=== PATIENT | female | born 1995 | race Caucasian/White ===

== ENCOUNTER 2019-10-29 10:12 | Observation (INO) | payer SELFPAY ==
[~2019-10-29] VITALS: Ht 157.4 cm; Wt 61.0 kg
[~2019-10-29 10:12] MED LIST: BACTRIM; IBP800T PO; PRM25T PO
[2019-10-29] MEDS ORDERED: LACTATED RINGERS 1,000 ML IV ONE ×2 (11:02→12:34)
[2019-10-29] MEDS ORDERED: ONDANSETRON 4 MG/2 ML (SDV) Z0FRAN IVP ONE (11:15)
[2019-10-29] MEDS ORDERED: KETOROLAC 30 MG/ML VIAL IVP ONE (11:15)
[2019-10-29 11:18] LABS: BILIRUBIN,URINE NEGATIVE (NEGATIVE); CLARITY,URINE CLOUDY; COLOR,URINE YELLOW; GLUCOSE, URINE (UA) NEGATIVE (NEGATIVE); KETONES,URINE 1+ (NEGATIVE); LEUKOCYTE ESTERASE ,URINE 2+ (NEGATIVE); NITRITE,URINE POSITIVE (NEGATIVE); PROTEIN,URINE TRACE (NEGATIVE)
[2019-10-29 11:35] LABS: BACTERIA,URINE LARGE /HPF; WBC,URINE 25-50 /HPF
[2019-10-29 12:00] LABS: BASOPHILS % (AUTO) 0 % (0-10); EOSINOPHILS % (AUTO) 0 % (0-10); HEMATOCRIT 41 % (35-52); HEMOGLOBIN 13.8 G/DL (11.5-16.0); LYMPHOCYTES # (AUTO) 0.5 X 10^3 (1.0-4.0); LYMPHOCYTES % (AUTO) 5 % (12-44); MEAN CORPUSCULAR HEMOGLOBIN 32 PG (25-34); MEAN CORPUSCULAR HGB CONC 34 G/DL (32-36); MEAN CORPUSCULAR VOLUME 94 FL (80-99); MEAN PLATELET VOLUME 10.4 FL (7.4-10.4); MONOCYTES # (AUTO) 1.3 X 10^3 (0.0-1.0); MONOCYTES % (AUTO) 12 % (0-12); NEUTROPHILS # (AUTO) 9.1 X 10^3 (1.8-7.8); NEUTROPHILS % (AUTO) 83 % (42-75); PLATELET COUNT 212 10^3/uL (130-400); WHITE BLOOD COUNT 10.9 10^3/uL (4.3-11.0)
[2019-10-29 12:22] LABS: ALANINE AMINOTRANSFERASE 206 U/L (0-55); ALBUMIN 4.3 GM/DL (3.2-4.5); ALKALINE PHOSPHATASE 192 U/L (40-136); BUN/CREATININE RATIO 8; CALCIUM 9.7 MG/DL (8.5-10.1); CARBON DIOXIDE 23 MMOL/L (21-32); CHLORIDE 100 MMOL/L (98-107); CREATININE SERUM 0.76 MG/DL (0.60-1.30); GFR ESTIMATED > 60; GLUCOSE 90 MG/DL (70-105); MAGNESIUM 1.9 MG/DL (1.6-2.4); POTASSIUM 3.8 MMOL/L (3.6-5.0); SODIUM 135 MMOL/L (135-145); TOTAL PROTEIN 7.9 GM/DL (6.4-8.2)
[2019-10-29 12:44] LABS: BAND NEUTROPHILS 0 %; BASOPHILS % (MANUAL) 0 %; EOSINOPHILS % (MANUAL) 0 %; LYMPHOCYTES % (MANUAL) 8 %; MONOCYTES % (MANUAL) 10 %; NEUTROPHILS % (MANUAL) 82 %; RBC MORPH NORMAL
--- NOTE | 2019-10-29 12:44 | ED General ---
General Chief Complaint: Cough/Cold/Flu Symptoms Stated Complaint: BODY ACHES / VOMITING / FEVER Nursing Triage Note: pt presents to ed with complaints of body aches, night chills, low grade fevers, and one episode of vomiting this am. Nursing Sepsis Screen: Possible Sepsis Risk Source of Information: Patient Exam Limitations: No Limitations History of Present Illness Date Seen by Provider: Oct 29, 2019 Time Seen by Provider: 10:14 Initial Comments This 23-year-old young lady presents to the emergency room with illness since October 26. It started with back cramping and aching that then radiated down into her legs. She then developed headache and vomiting today. Pain is worse in the left lower back. She took a dose of Tylenol cold and flu which did not improve her symptoms. She has had subjective fevers. She denies any urinary or vaginal complaints. She denies . She reports no significant health problems. She is afebrile at present but is tachycardic with a heart rate in the 120s at rest. Allergies and Home Medications Allergies Coded Allergies: acetaminophen (Verified Adverse Reaction, Intermediate, VOMITING, 10/21/12) propoxyphene napsylate (Verified Adverse Reaction, Intermediate, VOMITING, 10/21/12) Home Medications Ibuprofen 800 Mg Tab, 800 MG PO Q8HR PRN Prescribed by: RAULITO ANN on 10/21/122015 Promethazine Hcl 25 Mg Tablet, 1 TAB PO TID PRN Prescribed by: RAULITO ANN on 10/21/122013 Patient Home Medication List Home Medication List Reviewed: Yes Review of Systems Review of Systems Constitutional: see HPI EENTM: no symptoms reported Respiratory: no symptoms reported Cardiovascular: see HPI Gastrointestinal: see HPI Genitourinary: no symptoms reported : No Musculoskeletal: see HPI Skin: no symptoms reported Psychiatric/Neurological: No Symptoms Reported Hematologic/Lymphatic: No Symptoms Reported Past Tvkqnos-[id number]-Nltccq Hx Past Med/Social Hx: Reviewed and Corrections made Patient Social History Alcohol Use: Occasionally Uses Recreational Drug Use: No Smoking Status: Never a Smoker Recent Foreign Travel: No Contact w/Someone Who Travel: No Recent Infectious Disease Expo: No Physical Abuse: No Sexual Abuse: No Mistreated: No Fear: No Immunizations Up To Date PED Vaccines UTD: Yes Past Medical History Surgeries: Yes (R KNEE SCOPE) Adenoidectomy, Orthopedic, Tonsillectomy Respiratory: No Cardiac: No Neurological: No Reproductive Disorders: No Sexually Transmitted Disease: No HIV/AIDS: No Gastrointestinal: Yes (history of elevated transaminases) Musculoskeletal: No Endocrine: No HEENT: No Cancer: No Psychosocial: No Integumentary: No Blood Disorders: No Adverse Reaction/Blood Tranf: No Family Medical History Reviewed Nursing Family Hx Physical Exam Vital Signs Vital Signs - First Documented 10/29/19 10:20 Temp 37.0 Pulse 115 Resp 20 B/P (MAP) 133/86 (102) Pulse Ox 99 Capillary Refill : Less Than 3 Seconds Height, Weight, BMI Height: '" Weight: lbs. oz. kg; 21.00 BMI Method:Stated General Appearance: No Apparent Distress, WD/WN, Thin HEENT: PERRL/EOMI, TMs Normal, Normal ENT Inspection, Pharynx Normal Neck: Normal Inspection Respiratory: Lungs Clear, Normal Breath Sounds, No Accessory Muscle Use, No Respiratory Distress Cardiovascular: No Edema, No Murmur, Normal Peripheral Pulses, Tachycardia Gastrointestinal: Normal Bowel Sounds, Non Tender, Soft Back: Normal Inspection, No CVA Tenderness, No Vertebral Tenderness Extremity: Normal Inspection, No Pedal Edema Neurologic/Psychiatric: Alert, Oriented x3, No Motor/Sensory Deficits, Normal Mood/Affect, 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 Skin: Normal Color, Warm/Dry Focused Exam Lactate Level 10/29/19 12:43: Lactic Acid Level Laboratory Tests Test 10/29/19 12:43 Progress/Results/Core Measures Suspected Sepsis Recent Fever Within 48 Hours: Yes Infection Criteria Present: Suspected New Infection New/Unexplained Altered Menta: No Sepsis Screen: Possible Sepsis Risk SIRS Temperature: Pulse: 115 Respiratory Rate: 20 Laboratory Tests 10/29/19 11:50: White Blood Count 10.9 Blood Pressure 133 /86 Mean: 102 10/29/19 12:43: Laboratory Tests 10/29/19 11:50: Creatinine 0.76, Platelet Count 212, Total Bilirubin 1.0 Results/Orders Lab Results Laboratory Tests Test 10/29/19 11:08 10/29/19 11:50 10/29/19 12:43 Range/Units Urine Color YELLOW Urine Clarity CLOUDY Urine pH 7.0 5-9 Urine Specific [place] 1.015 L 1.016-1.022 Urine Protein TRACE H NEGATIVE Urine Glucose (UA) NEGATIVE NEGATIVE Urine Ketones 1+ H NEGATIVE Urine Nitrite POSITIVE H NEGATIVE Urine Bilirubin NEGATIVE NEGATIVE Urine Urobilinogen 1.0 < = 1.0 MG/DL Urine Leukocyte Esterase 2+ H NEGATIVE Urine RBC (Auto) 2+ H NEGATIVE Urine RBC 5-10 H /HPF Urine WBC 25-50 H /HPF Urine Squamous Epithelial Cells 10-25 H /HPF Urine Crystals NONE /LPF Urine Bacteria LARGE H /HPF Urine Casts NONE /LPF Urine Mucus NEGATIVE /LPF Urine Culture Indicated YES White Blood Count 10.9 4.3-11.0 10^3/uL Red Blood Count 4.32 L 4.35-5.85 10^6/uL Hemoglobin 13.8 11.5-16.0 G/DL Hematocrit 41 35-52 % Mean Corpuscular Volume 94 80-99 FL Mean Corpuscular Hemoglobin 32 25-34 PG Mean Corpuscular Hemoglobin Concent 34 32-36 G/DL Red Cell Distribution Width 13.0 10.0-14.5 % Platelet Count 212 130-400 10^3/uL Mean Platelet Volume 10.4 7.4-10.4 FL Neutrophils (%) (Auto) 83 H 42-75 % Lymphocytes (%) (Auto) 5 L 12-44 % Monocytes (%) (Auto) 12 0-12 % Eosinophils (%) (Auto) 0 0-10 % Basophils (%) (Auto) 0 0-10 % Neutrophils # (Auto) 9.1 H 1.8-7.8 X 10^3 Lymphocytes # (Auto) 0.5 L 1.0-4.0 X 10^3 Monocytes # (Auto) 1.3 H 0.0-1.0 X 10^3 Eosinophils # (Auto) 0.0 0.0-0.3 10^3/uL Basophils # (Auto) 0.0 0.0-0.1 10^3/uL Neutrophils % (Manual) 82 % Lymphocytes % (Manual) 8 % Monocytes % (Manual) 10 % Eosinophils % (Manual) 0 % Basophils % (Manual) 0 % Band Neutrophils 0 % Blood Morphology Comment NORMAL Sodium Level 135 135-145 MMOL/L Potassium Level 3.8 3.6-5.0 MMOL/L Chloride Level 100 98-107 MMOL/L Carbon Dioxide Level 23 21-32 MMOL/L Anion Gap 12 5-14 MMOL/L Blood Urea Nitrogen 6 L 7-18 MG/DL Creatinine 0.76 0.60-1.30 MG/DL Estimat Glomerular Filtration Rate > 60 BUN/Creatinine Ratio 8 Glucose Level 90 70-105 MG/DL Calcium Level 9.7 8.5-10.1 MG/DL Corrected Calcium 9.5 8.5-10.1 MG/DL Magnesium Level 1.9 1.6-2.4 MG/DL Total Bilirubin 1.0 0.1-1.0 MG/DL Aspartate Amino Transf (AST/SGOT) 126 H 5-34 U/L Alanine Aminotransferase (ALT/SGPT) 206 H 0-55 U/L Alkaline Phosphatase 192 H 40-136 U/L Total Protein 7.9 6.4-8.2 GM/DL Albumin 4.3 3.2-4.5 GM/DL Serum Test, Qualitative NEGATIVE NEGATIVE Micro Results Microbiology 10/29/19 Influenza Types A,B Antigen (CARLIE) - Final, Complete My Orders Orders - RAULITO CRUZ MD Influenza A And B Antigens (10/29/19 10:14) Ed Iv/Invasive Line Start (10/29/19 11:02) Lactated Ringers (Lr 1000 Ml Iv Solution (10/29/19 11:02) Cbc With Automated Diff (10/29/19 11:02) Comprehensive Metabolic Panel (10/29/19 11:02) Hcg,Qualitative Serum (10/29/19 11:02) Magnesium (10/29/19 11:02) Ua Culture If Indicated (10/29/19 11:02) Ondansetron Injection (Zofran Injectio (10/29/19 11:15) Ketorolac Injection (Toradol Injection) (10/29/19 11:15) Urine Culture (10/29/19 11:08) Manual Differential (10/29/19 11:50) Acetaminophen Tablet (Tylenol Tablet) (10/29/19 12:45) Lactated Ringers (Lr 1000 Ml Iv Solution (10/29/19 12:34) Blood Culture (10/29/19 12:34) Protime With Inr (10/29/19 12:34) Partial Thromboplastin Time (10/29/19 12:34) Ed Iv/Invasive Line Start (10/29/19 12:34) Vital Signs Adult Sepsis Patie Q15M (10/29/19 12:34) Lactic Acid Analyzer (10/29/19 12:34) Hepatitis Panel Acute (10/29/19 12:36) Ceftriaxone For Iv Use (Rocephin For I (10/29/19 12:45) Medications Given in ED Current Medications Medications Dose Ordered Sig/Irasema Route Start Time Stop Time Status Last Admin Dose Admin Acetaminophen 500 mg ONCE ONCE PO 10/29/19 12:45 10/29/19 12:46 DC 10/29/19 12:53 500 MG Ketorolac Tromethamine 15 mg ONCE ONCE IVP 10/29/19 11:15 10/29/19 11:16 DC 10/29/19 11:53 15 MG Lactated Ringer's 1,000 ml @ 0 mls/hr Q0M ONCE IV 10/29/19 11:02 10/29/19 11:03 DC 10/29/19 11:53 0 MLS/HR Lactated Ringer's 1,000 ml @ 0 mls/hr Q0M ONCE IV 10/29/19 12:34 10/29/19 12:36 DC 10/29/19 12:52 0 MLS/HR Ondansetron HCl 8 mg ONCE ONCE IVP 10/29/19 11:15 10/29/19 11:16 DC 10/29/19 11:53 8 MG Vital Signs/I&O 10/29/19 10:20 Temp 37.0 Pulse 115 Resp 20 B/P (MAP) 133/86 (102) Pulse Ox 99 Capillary Refill : Less Than 3 Seconds Blood Pressure Mean: 102 Progress Note : Progress Note Influenza screen was negative. Urinary tract infection was identified by urinalysis. Patient received a liter of IV fluid but was still tachycardic. A second liter of IV fluid was started. Rocephin was ordered for initial treatment of urinary tract infection. Although patient does not meet septic criteria by objective values, she has some symptoms suggestive of sepsis. Blood culture and lactic acid will therefore be obtained. Transaminases were noted to be elevated. Patient states she's had this problem in the past. Her only stated risk factor for hepatitis is tattoos. An acute hepatitis panel was ordered. Given patient's total presentation, I feel she would be best served by observation in the hospital with IV fluids and IV antibiotics. Case was discussed with Dr. uZniga who agrees with admission. Departure Communication (Admissions) Time/Spoke to Admitting Phy: 12:40 Dr. Zuniga Impression Primary Impression: Pyelonephritis Additional Impressions: Elevated liver enzymes Acute headache Qualified Codes: R51 - Headache Disposition: 09 ADMITTED INPATIENT Condition: Improved Admissions Decision to Admit Reason: Admit from ER (Trauma) Decision to Admit/Date: Oct 29, 2019 Time/Decision to Admit Time: 12:30 Departure-Patient Inst. Referrals: NO,LOCAL PHYSICIAN (PCP/Family) Primary Care Physician RAULITO CRUZ MD Oct 29, 2019 12:44
[2019-10-29] MEDS ORDERED: cefTRIAXone FOR IV USE 1,000 MG in WATER (STERILE) FOR INJECTION 10 ML IV ONE (12:45)
[2019-10-29] MEDS ORDERED: ACETAMINOPHEN 500 MG TAB (TYLENOL) PO ONE (12:45)
[2019-10-29 13:34] LABS: INR 1.1 (0.8-1.4); PROTHROMBIN TIME PATIENT 14.3 SEC (12.2-14.7)
[2019-10-29 14:09] VITALS: BP 100/68
--- NOTE | 2019-10-29 14:13 | NUR ---
DEYANIRA ROWE admitted to room 428-1, with an admitting diagnosis of PYLEONEPHRITIS, on 10/29/19 from ED via , accompanied by FAMILY AND STAFF. DEYANIRA ROWE introduced to surroundings, call light, bed controls, phone, TV, temperature control, lights, meal times, smoking policy, visitor policy, side rail policy, bathrooms and showers. Patient Rights given to patient in the handbook. DEYANIRA ROWE verbalizes understanding that [facility] is not responsible for the loss or damage to any personal effects or valuables that are kept in the patients posession during their hospitalization. DEYANIRA ROWE verbalizes understanding of Interdisciplinary Patient Education. Patient and/or family were informed about the Rapid Response Team and its purpose.
[2019-10-29] MEDS ORDERED: CATHETER FLUSH 10 ML SYR IV PRN (14:15)
[2019-10-29] MEDS: IBUPROFEN TABLET 200 MG TAB PO PRN ×2 (14:48→21:55)
[2019-10-29] MEDS: NS IV 1000 ML 1,000 ML IV SCH ×2 (14:56→20:44)
[2019-10-29 15:28] VITALS: BP 97/62
[2019-10-29] MEDS: fentaNYL INJECTION 100 MCG/2 ML AMP IV PRN ×2 (17:29→22:00)
[2019-10-29] MEDS: ONDANSETRON 4 MG/2 ML (SDV) Z0FRAN IV PRN ×2 (17:29→21:55)
[2019-10-29 19:11] VITALS: BP 93/61
[2019-10-30] VITALS: BP 95/52
[2019-10-30 04:00] VITALS: BP 92/54
[2019-10-30] MEDS: NS IV 1000 ML 1,000 ML IV SCH ×2 (04:02→08:58)
[2019-10-30 05:31] LABS: BASOPHILS % (AUTO) 0 % (0-10); EOSINOPHILS % (AUTO) 0 % (0-10); HEMATOCRIT 36 % (35-52); HEMOGLOBIN 11.5 G/DL (11.5-16.0); LYMPHOCYTES # (AUTO) 0.9 X 10^3 (1.0-4.0); LYMPHOCYTES % (AUTO) 12 % (12-44); MEAN CORPUSCULAR HEMOGLOBIN 31 PG (25-34); MEAN CORPUSCULAR HGB CONC 32 G/DL (32-36); MEAN CORPUSCULAR VOLUME 97 FL (80-99); MEAN PLATELET VOLUME 10.7 FL (7.4-10.4); MONOCYTES # (AUTO) 1.2 X 10^3 (0.0-1.0); MONOCYTES % (AUTO) 15 % (0-12); NEUTROPHILS # (AUTO) 5.5 X 10^3 (1.8-7.8); NEUTROPHILS % (AUTO) 72 % (42-75); PLATELET COUNT 174 10^3/uL (130-400); RED CELL DISTRIBUTION WIDTH 13.1 % (10.0-14.5); WHITE BLOOD COUNT 7.6 10^3/uL (4.3-11.0)
[2019-10-30] MEDS: IBUPROFEN TABLET 200 MG TAB PO PRN (05:34)
[2019-10-30 05:48] LABS: ALANINE AMINOTRANSFERASE 136 U/L (0-55); ALBUMIN 3.3 GM/DL (3.2-4.5); ALKALINE PHOSPHATASE 151 U/L (40-136); BILIRUBIN,TOTAL 0.7 MG/DL (0.1-1.0); BUN/CREATININE RATIO 6; CALCIUM 8.5 MG/DL (8.5-10.1); CARBON DIOXIDE 22 MMOL/L (21-32); CHLORIDE 108 MMOL/L (98-107); CREATININE SERUM 0.69 MG/DL (0.60-1.30); GFR ESTIMATED > 60; GLUCOSE 101 MG/DL (70-105); POTASSIUM 4.1 MMOL/L (3.6-5.0); SODIUM 139 MMOL/L (135-145); TOTAL PROTEIN 6.3 GM/DL (6.4-8.2)
[2019-10-30 08:00] VITALS: BP 105/71
[2019-10-30] MEDS ORDERED: HYDROcodone/APAP 5 MG/325 MG (LORTAB) TAB ONE (08:50)
[2019-10-30] MEDS: fentaNYL INJECTION 100 MCG/2 ML AMP IV PRN (08:57)
[2019-10-30] MEDS: ONDANSETRON 4 MG/2 ML (SDV) Z0FRAN IV PRN (08:58)
[2019-10-30] MEDS ORDERED: CEPH-507 PO (10:34)
[2019-10-30 11:32] VITALS: BP 105/71
--- NOTE | 2019-10-30 11:33 | Discharge Summary ---
Discharge Summary Hospital Course Was the Problem List Reviewed?: Yes Problems/Dx: (1) Pyelonephritis Status: Acute Hospital Course Date of Admission: Oct 29, 2019 at 12:40 Admission Diagnosis : Pyelonephritis Family Physician/Provider: No,Local Physician Date of Discharge: 10/30/19 Discharge Diagnosis: Pyelonephritis Hospital Course: Thi Nickerson is a 24-year-old female who was admitted with pyelonephritis. She was started on IV antibiotics and improved quickly. She was transitioned to oral Keflex on discharge. Her urine culture and sensitivities were pending on discharge. Her course is complicated by mildly elevated liver enzymes which were improving at the time of discharge. She was encouraged to establish care with a primary care physician. Labs and Pending Lab Test: Laboratory Tests 10/29/19 11:50: White Blood Count 10.9, Red Blood Count 4.32L, Hemoglobin 13.8, Hematocrit 41, Mean Corpuscular Volume 94, Mean Corpuscular Hemoglobin 32, Mean Corpuscular Hemoglobin Concent 34, Red Cell Distribution Width 13.0, Platelet Count 212, Mean Platelet Volume 10.4, Neutrophils (%) (Auto) 83H, Lymphocytes (%) (Auto) 5L , Monocytes (%) (Auto) 12, Eosinophils (%) (Auto) 0, Basophils (%) (Auto) 0, Neutrophils # (Auto) 9.1H, Lymphocytes # (Auto) 0.5L, Monocytes # (Auto) 1.3H, Eosinophils # (Auto) 0.0, Basophils # (Auto) 0.0, Neutrophils % (Manual) 82, Lymphocytes % (Manual) 8, Monocytes % (Manual) 10, Eosinophils % (Manual) 0, Basophils % (Manual) 0, Band Neutrophils 0, Blood Morphology Comment NORMAL, Sodium Level 135, Potassium Level 3.8, Chloride Level 100, Carbon Dioxide Level 23, Anion Gap 12, Blood Urea Nitrogen 6L, Creatinine 0.76, Estimat Glomerular Filtration Rate > 60, BUN/Creatinine Ratio 8, Glucose Level 90, Calcium Level 9.7, Corrected Calcium 9.5, Magnesium Level 1.9, Total Bilirubin 1.0, Aspartate Amino Transf (AST/SGOT) 126H, Alanine Aminotransferase (ALT/SGPT) 206H, Alkaline Phosphatase 192H, Total Protein 7.9, Albumin 4.3, Serum Test, Qualitative NEGATIVE 10/29/19 12:43: Lactic Acid Level 0.93, Hepatitis A IgM Antibody [Pending], Hepatitis B Surface Antigen [Pending], Hepatitis B Core IgM Antibody [Pending], Hepatitis C Antibody [Pending] 10/29/19 13:14: Prothrombin Time 14.3, INR Comment 1.1, Activated Partial Thromboplast Time 37H 10/30/19 05:17: White Blood Count 7.6, Red Blood Count 3.66L, Hemoglobin 11.5, Hematocrit 36, Mean Corpuscular Volume 97, Mean Corpuscular Hemoglobin 31, Mean Corpuscular Hemoglobin Concent 32, Red Cell Distribution Width 13.1, Platelet Count 174, Me an Platelet Volume 10.7H, Neutrophils (%) (Auto) 72, Lymphocytes (%) (Auto) 12, Monocytes (%) (Auto) 15H, Eosinophils (%) (Auto) 0, Basophils (%) (Auto) 0, Neutrophils # (Auto) 5.5, Lymphocytes # (Auto) 0.9L, Monocytes # (Auto) 1.2H, Eosinophils # (Auto) 0.0, Basophils # (Auto) 0.0, Sodium Level 139, Potassium Level 4.1, Chloride Level 108H, Carbon Dioxide Level 22, Anion Gap 9, Blood Urea Nitrogen 4L, Creatinine 0.69, Estimat Glomerular Filtration Rate > 60, BUN/Creatinine Ratio 6, Glucose Level 101, Calcium Level 8.5, Corrected Calcium 9.1, Total Bilirubin 0.7, Aspartate Amino Transf (AST/SGOT) 66H, Alanine Grewal otransferase (ALT/SGPT) 136H, Alkaline Phosphatase 151H, Total Protein 6.3L, Albumin 3.3 Microbiology 10/29/19 Urine Culture - Preliminary, Resulted Gram Negative Bacillus 1 10/29/19 Influenza Types A,B Antigen (CARLIE) - Final, Complete Home Meds Active Keflex (Cephalexin) 500 Mg Capsule 500 Mg PO BID 10 Days Motrin (Ibuprofen) 800 Mg Tab 800 Mg PO Q8HR PRN Phenergan 25 Mg (Promethazine HCl) 25 Mg Tablet 1 Tab PO TID PRN Assessment/Pt Instructions Take medications as prescribed. Complete course of antibiotics even if you're feeling better. Establish care with the primary care physician. Return with worsening fevers, back pain, or if you feel like you're getting worse. Discharge Planning: <30 minutes discharge planning Discharge Instructions Discharge Diet: No Restrictions Activity as Tolerated: Yes Discharge Physical Examination Vital Signs Vital Signs Date Time Temp Pulse Resp B/P (MAP) Pulse Ox O2 Delivery O2 Flow Rate FiO2 10/30/19 08:00 97 Room Air 10/30/19 08:00 36.8 94 16 105/71 (82) General Appearance: No Apparent Distress, WD/WN Respiratory: Lungs Clear, Normal Breath Sounds, No Respiratory Distress Cardiovascular: Regular Rate, Rhythm, No Edema, No Murmur Gastrointestinal: Normal Bowel Sounds, Non Tender, Soft Extremity: Normal Inspection, Non Tender, No Pedal Edema Skin: Normal Color, Warm/Dry Neurologic/Psychiatric: Alert, Oriented x3 Allergies: Coded Allergies: acetaminophen (Verified Adverse Reaction, Intermediate, VOMITING, 10/21/12) propoxyphene napsylate (Verified Adverse Reaction, Intermediate, VOMITING, 10/21/12) Discharge Summary Date of Admission Oct 29, 2019 at 12:40 Date of Discharge Discharge Date: Oct 30, 2019 Discharge Time: 11:31 Admission Diagnosis Pyelonephritis Discharge Diagnosis Pyelonephritis (1) Pyelonephritis Status: Acute (2) Elevated liver enzymes Status: Acute Clinical Quality Measures DVT/VTE Risk/Contraindication: Risk Factor Score Per Nursin RFS Level Per Nursing on Admit: 1=Low/No VTE PPX JEFRY MALAVE MD Oct 30, 2019 11:33
[2019-10-30] MEDS ORDERED: cefTRIAXone 1,000 MG/SWFI 10 ML IV PUSH IV SCH ×2 (12:00)
--- NOTE | 2019-10-30 12:10 | NUR ---
DISCHARGE PAPERS DISCUSSED WITH PATIENT AND HER FATHER AT THIS TIME. THIS RN WILL CONT. TO MONITOR THIS PATIENT UNTIL D/C HOME LATER TODAY.
[2019-10-30 21:52] LABS: HEPATITIS C ANTIBODY C Non-Reactive (Non-Reactive)
== END 2019-10-30 12:30 | disposition home or self-care (01) ==
LOC: EDUNIT# 10:12 → ER 10:14 → 4TH 12:40
PROVIDERS: ADMIT Family Medicine; ATTEND Family Medicine
DX: N10 Acute pyelonephritis (principal); N94.5 Secondary dysmenorrhea; R51 Headache; Z88.8 Allergy status to other drugs, medicaments and biological substances; Z79.899 Other long term (current) drug therapy; Z90.89 Acquired absence of other organs
CPT/HCPCS: 36415; 80053; 80074; 81000; 83605; 83735; 84703; 85007; 85025; 85027; 85610; 85730; 87040; 87077; 87088; 87186; 87804; G0378

== ENCOUNTER → 2022-08-11 | Outpatient (CLI) | payer OTHER ==
[~2022-08-11] MED LIST changes: +CEPH-507 PO
[2022-08-11 09:44] LABS: HEMATOCRIT 40 % (35-52); HEMOGLOBIN 13.1 g/dL (11.5-16.0); MEAN CORPUSCULAR HEMOGLOBIN 30 pg (25-34); MEAN CORPUSCULAR HGB CONC 33 g/dL (32-36); MEAN CORPUSCULAR VOLUME 90 fL (80-99); PLATELET COUNT 220 10^3/uL (130-400)
[2022-08-11 10:19] LABS: CALCIUM 9.7 MG/DL (8.5-10.1); CREATININE SERUM 0.78 MG/DL (0.60-1.30)
== END ==
LOC: LAB 09:12
PROVIDERS: ATTEND Family Medicine
DX: R53.83 Other fatigue (principal)
CPT/HCPCS: 36415; 80048; 83540; 84443; 85027; 86376